=== PATIENT | male | born 1985 | race Caucasian/White ===

== ENCOUNTER 2022-03-05 08:50 | Emergency (ER) | payer SELFPAY ==
[~2022-03-05] VITALS: Ht 177.8 cm; Wt 95.3 kg
[2022-03-05] MEDS ORDERED: MUCINEX DM ER1 EACH PO (09:07)
[2022-03-05] MEDS ORDERED: ONDANSETRON ODT4 MG PO (09:07)
== END 2022-03-05 09:45 | disposition home or self-care (01) ==
LOC: ER 08:54
DX: R50.9 Fever, unspecified (principal); U07.1 COVID-19; R05.9 Cough, unspecified; M54.9 Dorsalgia, unspecified; G89.29 Other chronic pain
CPT/HCPCS: 99282